=== PATIENT | female | born 1935 | race Hispanic/Latino ===

== ENCOUNTER 2024-06-23 20:26 | Emergency (ER) | payer OTHER ==
[~2024-06-23 20:26] MED LIST: Iopamidol 370 76% 100 ML VIAL ONE
[2024-06-23] MEDS ORDERED: Ondansetron PF 4 MG/2 ML Vial ONE (21:30)
[2024-06-23] MEDS ORDERED: Pantoprazole 40 MG VIAL ONE (21:30)
[2024-06-23 21:31] LABS: #Basophils 0.05 10x3/uL (0.0-0.2); %Basophils 0.6 % (0.0-1.0); %Eosinophils 1.4 % (0.0-10.0); %Lymphocytes 33.4 % (21.0-51.0); %Monocytes 7.8 % (0.0-10.0); %Neutrophils 56.5 % (42.0-75.0); Hematocrit 40.8 % (36.0-47.0); Hemoglobin 13.1 g/dL (12.0-16.0); Mean Corpuscular HGB CONC 32.1 g/dL (32.0-36.0); Mean Corpuscular Hemoglobin 30.4 pg (27.0-31.0); Mean Corpuscular Volume 94.7 fL (78.0-98.0); Mean Platelet Volume 9.1 fL (7.4-10.4); Platelet Count 224 10x3/uL (130-400); RBC Distribution Width 11.9 % (11.5-14.5); Red Blood Cell (RBC) Count 4.31 mill/uL (4.20-5.40)
[2024-06-23 21:49] LABS: ALT (SGPT) 23 U/L (8-55); AST (SGOT) 19 U/L (5-34); Albumin 3.6 g/dL (3.4-4.8); Alkaline Phosphatase 41 U/L (40-110); Anion Gap 15 mmol/L (10-20); BUN (Urea Nitrogen) 27 mg/dL (9.8-20.1); Bilirubin, Total 0.3 mg/dL (0.2-1.2); Calc. Creatinine Clearance 0 mL/min (70-130); Calcium 8.9 mg/dL (7.8-10.44); Carbon Dioxide 20 mmol/L (23-31); Chloride 108 mmol/L (98-107); Estimated GFR 40; Globulin 3.8 g/dL (2.4-3.5); Glucose 171 mg/dL (83-110); Lipase 52 U/L (8-78); Potassium 4.2 mmol/L (3.5-5.1); Protein, Total 7.4 g/dL (5.8-8.1); Sodium 139 mmol/L (136-145)
[2024-06-23 21:55] LABS: Troponin I Less than 0.010 ng/mL (< 0.028)
== END 2024-06-23 23:25 | disposition home or self-care (01) ==
LOC: ERS 20:26
DX: R10.13 Epigastric pain (principal); I10 Essential (primary) hypertension; E11.9 Type 2 diabetes mellitus without complications
CPT/HCPCS: 36415; 74177; 80053; 83690; 84484; 85025; 93005; 96374; 96375; J2405; J2470; Q9967